=== PATIENT | female | born 1970 | race Caucasian/White ===

== ENCOUNTER → 2016-11-24 | Outpatient (CLI) | payer OTHER ==
[~2016-11-24] MED LIST: EFFE150C PO; LORT5TAB PO; MAGN250T11 PO; MULT-65 PO; [UNRECOGNIZED DRUG - CODE] PO
[2016-11-24 10:14] LABS: BASOPHIL % 0.6 % (0.0-2.0); EOSINOPHIL # 0.1 TH/MM3 (0-0.4); EOSINOPHIL % 0.9 % (0.0-4.0); HEMATOCRIT 39.6 % (35.0-46.0); HEMO FLAGS DIFF FINAL; LYMPH % 28.3 % (9.0-44.0); LYMPHOCYTE # 1.8 TH/MM3 (1.0-4.8); MEAN CORPUSCULAR HEMOGLOBIN 27.7 PG (27.0-34.0); MEAN CORPUSCULAR HGB CONC 32.2 % (32.0-36.0); MONO % 7.5 % (0.0-8.0); NEUT % 62.7 % (16.0-70.0); PLATELET COUNT 315 TH/MM3 (150-450); RED BLOOD COUNT 4.61 MIL/MM3 (4.00-5.30); RED CELL DISTRIBUTION WIDTH 13.8 % (11.6-17.2); WHITE BLOOD COUNT 6.4 TH/MM3 (4.0-11.0)
== END ==
LOC: CPRE 09:26
PROVIDERS: ATTEND Obstetrics & Gynecology
DX: Z01.812 Encounter for preprocedural laboratory examination (principal); D25.9 Leiomyoma of uterus, unspecified
CPT/HCPCS: 36415; 84703; 85025

== ENCOUNTER → 2016-12-16 | Outpatient (CLI) | payer OTHER ==
[~2016-12-16] MED LIST changes: -LORT5TAB PO; -[UNRECOGNIZED DRUG - CODE] PO
[2016-12-16 10:05] LABS: HEMATOCRIT 40.2 % (35.0-46.0); MEAN CELL VOLUME 86.4 FL (80.0-100.0); MEAN CORPUSCULAR HEMOGLOBIN 28.8 PG (27.0-34.0); MEAN CORPUSCULAR HGB CONC 33.4 % (32.0-36.0); PLATELET COUNT 361 TH/MM3 (150-450); RED BLOOD COUNT 4.65 MIL/MM3 (4.00-5.30); RED CELL DISTRIBUTION WIDTH 13.6 % (11.6-17.2); REVIEW FLAG FINAL; WHITE BLOOD COUNT 6.3 TH/MM3 (4.0-11.0)
[2016-12-16 10:43] LABS: ANION GAP 5 MEQ/L (5-15); BICARBONATE 29.2 MEQ/L (21.0-32.0); BLOOD UREA NITROGEN 11 MG/DL (7-18); CHLORIDE 106 MEQ/L (98-107); GLOMERULAR FILTRATION RATE 96 ML/MIN (>89); GLUCOSE,FASTING 75 MG/DL (74-99); POTASSIUM 4.1 MEQ/L (3.5-5.1); SODIUM (NA) 140 MEQ/L (136-145)
[2016-12-16 11:00] LABS: BHCG SCREEN QUALITATIVE LESS THAN 1 MIU/ML (0-5)
== END ==
LOC: CPRE 09:04
PROVIDERS: ATTEND Obstetrics & Gynecology
DX: Z01.812 Encounter for preprocedural laboratory examination (principal); D25.9 Leiomyoma of uterus, unspecified
CPT/HCPCS: 36415; 80048; 84703; 85027

== ENCOUNTER 2016-12-21 05:46 | Observation (INO) | payer OTHER ==
[~2016-12-21] VITALS: Ht 165.1 cm; Wt 98.8 kg
[2016-12-21] MEDS ORDERED: ONDANSETRON HCL 4 MG/2 ML VIAL IV SCH (06:15)
[2016-12-21] MEDS ORDERED: POVIDONE IODINE 5% (ANTISEPSIS KIT) 4 APPLICATIONS EACH NARE PRN (06:15)
[2016-12-21] MEDS ORDERED: INSULIN HUMAN REGULAR 1,000 UNITS/10 ML VIAL SQ PRN (06:15)
[2016-12-21] MEDS ORDERED: CHLORHEXIDINE GLUCONATE 2 % 1 PACK (2 CLOTHS) TOPICAL PRN (06:15)
[2016-12-21] MEDS ORDERED: SODIUM CHLORID 0.9% 500 ML IV PRN (06:15)
[2016-12-21] MEDS ORDERED: LACTATED RINGER'S 1000 ML IV PRN (06:15)
[2016-12-21] MEDS ORDERED: ceFAZolin 1,000 MG/NS 100 ML IV SCH ×2 (06:15)
[2016-12-21] MEDS ORDERED: MIDAZOLAM HCL 2 MG/2 ML VIAL IV SCH (06:15)
[2016-12-21] MEDS ORDERED: METOPROLOL TARTRATE 25 MG TAB PO PRN (06:15)
[2016-12-21] MEDS ORDERED: VASOPRESSIN 20 UNITS/ML VIAL (IVTITR) ONE (07:00)
[2016-12-21] MEDS ORDERED: ACETAMINOPHEN 1000 MG/100 ML 100 ML IV ONE (07:14)
[2016-12-21] MEDS ORDERED: FAMOTIDINE 20 MG/2 ML VIAL ONE (07:14)
[2016-12-21] MEDS ORDERED: DO NOT ADM ANY ANTICOAGULANT DRUGS PRN (09:21)
[2016-12-21] MEDS ORDERED: *morphine SULFATE 8 MG/ML PERIprocedure ONLY ONE ×2 (09:33→09:39)
[2016-12-21] MEDS ORDERED: KETOROLAC TROMETHAMINE 30 MG/ML (IVP) VIAL ONE (09:38)
[2016-12-21] MEDS ORDERED: MORPHINE SULFATE 30 MG/30 ML PCA ONE (09:39)
--- NOTE | 2016-12-21 09:45 | MP ---
cc: KING PEREYRA DATE OF SURGERY: 12/21/2016 PREOPERATIVE DIAGNOSIS 1. Leiomyomata uteri. 2. Menorrhagia. POSTOPERATIVE DIAGNOSIS 1. Leiomyomata uteri. 2. Menorrhagia. PROCEDURE Laparoscopic-assisted supracervical hysterectomy, right salpingectomy. SURGEON MD Yinka ANESTHESIA General. ESTIMATED BLOOD LOSS 50 cc. COMPLICATIONS None. FINDINGS The patient had a uterus that was approximately 8 weeks size with multiple benign-appearing intramural leiomyomata uteri. The left fallopian tube was absent. The left ovary was normal. The right tube was surgically tied with the midportion absent, and the right ovary was unremarkable. The anterior and posterior cul-de-sacs were free of disease. The liver and upper abdominal organs were normal as far as could be visualized. DESCRIPTION OF PROCEDURE The patient was brought to the operating room and following general anesthesia was placed in dorsal lithotomy position. Her vagina, abdomen and perineum were prepped and draped. A HUMI catheter was placed in the uterus and a Partida catheter into the bladder. A 1 cm subumbilical skin incision was made. A Veress needle was inserted and 3 liters of CO2 was infused into the abdomen. The Veress needle was then removed and the laparoscope was placed without difficulty. A second and third puncture site were created under direct visualization. The findings were as noted above. The Harmonic scalpel was used to clamp, cut and seal the upper broad ligaments and round ligaments. The bladder peritoneum was incised and the bladder was sharply dissected off the anterior cervix. The uterine vessels were then skeletonized and then clamped, cut and sealed with the Harmonic scalpel. The cervix was then transected across the upper portion with the Harmonic scalpel. The stump of the cervix and endocervical canal were cauterized for future hemostasis. The uterus was then morcellated and removed. The right tube was removed by sealing the mesosalpinx with the Harmonic scalpel. The pelvis was copiously irrigated and excellent hemostasis was noted at all sites. Pictures were taken of all areas. All instruments were then removed and the CO2 gas was allowed to escape. The incisions were then closed with subcuticular 4-0 Vicryl stitch. The patient was then taken to the recovery room in good condition with all counts correct and clear urine draining in her Partida catheter. MD SHAZIA Roche/KINGSLEY /9:21 AM /9:31 AM
[2016-12-21] MEDS: DEXT 5%-NACL 0.45% 1000 ML INJ 1,000 ML IV SCH ×2 (09:50→18:14)
[2016-12-21] MEDS ORDERED: *HYDROmorphone PF 1 MG VIAL PERIprocedural Use ONLY ONE (10:01)
[2016-12-21] MEDS ORDERED: KETOROLAC TROMETHAMINE 30 MG/ML (IVP) VIAL IV PUSH ONE ×2 (10:15→12:00)
[2016-12-21] MEDS ORDERED: NALOXONE HCL 0.4 MG/ML AMP IV PUSH PRN (10:15)
[2016-12-21] MEDS: MORPHINE SULFATE 30 MG/30 ML PCA IV SCH ×2 (10:20→22:47)
[2016-12-21] MEDS: diphenhydrAMINE HCL 50 MG/ML VIAL IV PUSH PRN ×3 (10:36→22:54)
[2016-12-21 11:00] VITALS: BP 89/58; PULSE 82; RESP 14; TEMP 96.6; O2SAT 97
[2016-12-21] MEDS ORDERED: LACTATED RINGER'S 1000 ML INJ 1,000 ML IV ONE (12:00)
[2016-12-21] MEDS ORDERED: MIDAZOLAM HCL 2 MG/2 ML VIAL IV ONE (12:00)
[2016-12-21] MEDS ORDERED: PROPOFOL 200 MG/20 ML AMP IV ONE (12:00)
[2016-12-21] MEDS ORDERED: PHENYLEPH/NS 1000 MCG/10 ML SYR IV ONE (12:00)
[2016-12-21] MEDS ORDERED: NEOSTIGMINE 3 MG/3 ML SYR IV ONE (12:00)
[2016-12-21] MEDS ORDERED: DEXAMETHASONE SOD PHOS 4 MG/ML VIAL IV ONE (12:00)
[2016-12-21] MEDS ORDERED: LIDOCAINE HCL 1% PF 5 ML AMPULE OTHER ONE (12:00)
[2016-12-21] MEDS ORDERED: ROCURONIUM INJ 50 MG/5 ML SYRINGE IV PUSH ONE (12:00)
[2016-12-21] MEDS ORDERED: GLYCOPYRROLATE 1 MG/5 ML SYRINGE IV PUSH ONE (12:00)
[2016-12-21] MEDS: PCA - TOTAL MG MORPHINE DELIVERED PER SHIFT SCH ×2 (15:36→22:00)
[2016-12-21 16:00] VITALS: BP 86/68; PULSE 81; RESP 16; TEMP 97.2; O2SAT 98
[2016-12-21 17:06] VITALS: BP 106/62
[2016-12-21 20:40] VITALS: BP 111/72; PULSE 85; RESP 17; TEMP 99.1; O2SAT 98
[2016-12-21] MEDS: ONDANSETRON HCL 4 MG/2 ML VIAL IV PUSH PRN (20:45)
[2016-12-22 00:25] VITALS: BP 100/62; PULSE 80; RESP 17; TEMP 97.2; O2SAT 97
[2016-12-22] MEDS: DEXT 5%-NACL 0.45% 1000 ML INJ 1,000 ML IV SCH ×2 (02:15→10:50)
[2016-12-22 04:40] VITALS: BP 115/70; PULSE 82; RESP 17; TEMP 98.8; O2SAT 99
[2016-12-22] MEDS: diphenhydrAMINE HCL 50 MG/ML VIAL IV PUSH PRN (06:18)
[2016-12-22] MEDS: oxyCODONE/ACETAMINOPHEN 5 MG/325 MG TAB PO PRN ×2 (06:18→10:50)
[2016-12-22 07:56] LABS: HEMATOCRIT 36.4 % (35.0-46.0); REVIEW FLAG FINAL
[2016-12-22 08:00] VITALS: BP 99/72; PULSE 85; RESP 16; TEMP 97.6; O2SAT 99
[2016-12-22] MEDS: ONDANSETRON HCL 4 MG/2 ML VIAL IV PUSH PRN (08:01)
[2016-12-22] MEDS: PCA - TOTAL MG MORPHINE DELIVERED PER SHIFT SCH (08:18)
[2016-12-22] MEDS ORDERED: INFLUENZA VIRUS VACCINE (QUADRIVALENT) 0.5 ML SYR IM ONE (10:00)
[2016-12-22 12:00] VITALS: BP 101/72; PULSE 77; RESP 16; TEMP 97.5; O2SAT 99
== END 2016-12-22 12:33 | disposition home or self-care (01) ==
LOC: HSDC 05:46 → HOCB 11:26
PROVIDERS: ADMIT Obstetrics & Gynecology; ATTEND Obstetrics & Gynecology
DX: N92.0 Excessive and frequent menstruation with regular cycle (principal); D25.9 Leiomyoma of uterus, unspecified; E78.5 Hyperlipidemia, unspecified; R73.03 Prediabetes; Z23 Encounter for immunization
CPT/HCPCS: 00840; 58542; 85014; 85018; 86850; 86900; 86901; 88307; 90471; 90686; 96372; 96374; 96375; 96376; G0378; J0131; J0690; J1100; J1170; J1200; J1885; J2250; J2270; J2370; J2405; J2710; J3010; J7120; G0008; Q2038